=== PATIENT | male | born 1970 | race Caucasian/White ===

== ENCOUNTER 2024-10-20 08:31 | Observation (INO) ==
--- NOTE | 2024-09-21 10:37 | PAT Medication Instructions ---
Medication Instructions Date of Service September 21, 2024 Home Medications amlodipine 10 mg tablet 10 mg PO QAM cholecalciferol (vitamin D3) 125 mcg (5,000 unit) tablet (Vitamin D3) 125 mcg PO BID cyclobenzaprine 10 mg tablet 10 mg PO TID PRN DO NOT take the morning of surgery cholecalciferol (vitamin D3) 125 mcg (5,000 unit) tablet (Vitamin D3) 125 mcg PO BID Take morning of surgery With a small sip of water, OTHERWISE NOTHING TO EAT OR DRINK AFTER MIDNIGHT: amlodipine 10 mg tablet 10 mg PO QAM cyclobenzaprine 10 mg tablet 10 mg PO TID PRN(if needed) Take evening before surgery cholecalciferol (vitamin D3) 125 mcg (5,000 unit) tablet (Vitamin D3) 125 mcg PO BID cyclobenzaprine 10 mg tablet 10 mg PO TID PRN(if needed) Other Notes If you have any questions please call us at [phone] or [phone] or [phone] or [phone]
--- NOTE | 2024-09-28 11:36 | Anesthesiology Consultation ---
Date of Service September 28, 2024 Assessment & Plan (1) Encounter for pre-operative examination: Chart Review Chart Review: Acceptable Risk for Surgery (pending surgeon ordered PCP clearance ) and Patient seen in Pre Admission Testing - Awaiting PCP clearance 10/01/24 (Dr Honeycutt)- please fax preop testing for PCP review Per PAT appt on 09/28/24, no recent illness/disease exposures, illness related symptoms, or recent illness/disease positive tests. Will leave to surgeon's discretion if preop Covid testing needed Teaching & Discussion Pre-Anesthesia Teaching/Discussion Notes: Instructed NPO after midnight before surgery,except medications with 15 cc of water. Medication instructions provided according to the PAT guidelines. History Surgery Operation Date: 10/20/24 11:05 Proposed Procedures p C6-C7 Anterior Cervical Discectomy and Fusion, Spinal Cord Monitoring - Arash Hauser DO Height/Weight Height: 6 ft Weight: 132.9 kg Allergies Allergy/AdvReac Type Severity Reaction Status Date / Time No Known Allergies Allergy Verified 09/20/24 12:45 Medications Home Medications Medication Instructions Recorded Confirmed Last Taken amlodipine 10 mg tablet 10 mg PO QAM 09/20/24 09/20/24 Unknown cholecalciferol (vitamin D3) 125 125 mcg PO BID 09/20/24 09/20/24 Unknown mcg (5,000 unit) tablet (Vitamin D3) cyclobenzaprine 10 mg tablet 10 mg PO TID PRN Pain 09/20/24 09/20/24 Unknown Past Medical History Medical History BPH (benign prostatic hyperplasia) Cervical spinal stenosis Hx of gout no recent flares Hypertension Exercise / Class Metabolic Activity II 4-5 Yardwork/Stairs/Walk up hill (one flight of stairs - no chest pain or SOB- exercises at [employer] 6 days week) Past Family History Family History Father Hypertension Mother Hypertension Other No family history of adverse response to anesthesia Past Surgical History Surgical History H/O tooth extraction Hx of tonsillectomy Past Anesthesia History No Hx of Anesthesia Complications ((dental extractions and tonsillectomy during childhood)) and No Family Hx of Anesthesia Complications History of PONV No Hx of Motion Sickness and History of PONV (during childhood - no surgeries in adulthood ) Social History Smoking Status: Never smoker Do You Dip or Chew Tobacco: No Hx Alcohol Use: No substance use type: does not use Review of Systems - Had cough in Jul 2024- has since resolved - Occ reflux - feels due to increased NSAID use - no meds needed - Hx of seizure - during age 3- one time event- no seizure medications- possible febrile seizure - no issues since - Hx of snoring - no witnessed apnea- no hx of sleep study Patient denies chest pain, shortness of breath, dyspnea on exertion, wheezing, palpitations. No hx of stroke, [place]. No hx of blood clots or blood transfusions Physical Exam Vital Signs VITALS BP 151/92 P 64 TEMP 98.2 SP02 96% RESP 16 Constitutional no acute distress ENMT Mouth: no TMJ clicking Thyromental Distance: > or= 3.5 Finger Breadths (4.0) Mallampati Class: II Missing molar Neck + limited neck extension Respiratory normal respiratory effort; no respiratory distress Auscultation: lungs clear to auscultation bilaterally; no wheezes Cardiovascular Rate/Rhythm: regular rate and regular rhythm Heart Sounds: no murmur Vessels: no carotid bruit Musculoskeletal Spine: no pain with cervical ROM Extremities: extremities normal to inspection Psychiatric Orientation: alert Lab Results Anesthesia Preop Results Results Anesthesia Widget: WBC 6.54 K/ul (4.8-10.8) 09/28/24 Hgb 15.0 g/dl (14.0-18.0) 09/28/24 Hct 44.5 % (42.0-52.0) 09/28/24 Plt 212 K/uL (130-400) 09/28/24 Na 141 mmol/L (136-145) 09/28/24 K 4.2 mmol/L (3.5-5.1) 09/28/24 Cl 105 mmol/L (98-107) 09/28/24 CO2 29 mmol/L (21-32) 09/28/24 BUN 16 mg/dl (6-23) 09/28/24 Creat 1.16 mg/dl (0.6-1.4) 09/28/24 Glucose Level 79 mg/dl (70-99(Fasting)) 09/28/24 PT 10.0 Seconds (9.0-12.0) 09/28/24 PTT 25 Seconds (21-31) 09/28/24 INR 0.9 (0.9-1.1) 09/28/24 Urine Color Yellow 09/28/24 Urine Appearance Clear (Clear) 09/28/24 Urine pH 6.5 (4.5-7.5) 09/28/24 Urine Specific [place] 1.007 (1.000-1.030) 09/28/24 Urine Protein Negative (Negative) 09/28/24 Urine Glucose (UA) Negative (Negative) 09/28/24 Urine Ketones Negative (Negative) 09/28/24 Urine Blood Negative (Negative) 09/28/24 Urine Nitrite Negative (Negative) 09/28/24 Urine Bilirubin Negative (Negative) 09/28/24 Urine Urobilinogen Negative (Negative) 09/28/24 Urine Leukocyte Esterase Negative (Negative) 09/28/24 Blood Type A Negative 09/28/24 Antibody Screen NEGATIVE 09/28/24 Testing Electrocardiogram Date: 09/28/24 Findings: + SB @ (56bpm) Otherwise normal EKG per cardio Chest X-Ray Date: 09/28/24 Findings: + NAD FINDINGS: Mild cardiomegaly. Pulmonary vasculature appear within normal limits. No infiltrate, pleural effusion or pneumothorax. No acute osseous abnormality evident.
[2024-10-20] MEDS ORDERED: fentaNYL citrate PF 100 MCG/2 ML VIAL ONE (08:48)
[2024-10-20] MEDS ORDERED: ROCURONIUM BROMIDE 10 MG/ML 5 ML VIAL IV ONE ×2 (08:49→10:41)
[2024-10-20] MEDS ORDERED: PROPOFOL IV EMULSION 10 MG/ML 20 ML VIAL IV ONE ×2 (08:49)
[2024-10-20] MEDS ORDERED: GLYCOPYRROLATE 0.2 MG/ML VIAL ONE (08:49)
[2024-10-20] MEDS ORDERED: ONDANSETRON INJ 2 MG/ML 2 ML VIAL ONE (08:49)
[2024-10-20] MEDS ORDERED: DEXAMETHASONE SOD INJ 4 MG/ML VIAL ONE (08:49)
[2024-10-20] MEDS ORDERED: LIDOCAINE 2% 2 ML VIAL/AMP(20MG/ML) INFIL ONE (08:49)
[2024-10-20] MEDS ORDERED: MIDAZOLAM HCL 1 MG/ML 2ML VIAL ONE (08:49)
[2024-10-20] MEDS ORDERED: ePHEDrine sulfate 50 MG/ML AMP IV PRN (09:08)
[2024-10-20] MEDS ORDERED: HYDROmorphone INJ 2 MG/ML SYR/VIAL IV PRN (09:08)
[2024-10-20] MEDS ORDERED: DROPERIDOL 5 MG/2 ML VIAL IV PRN (09:08)
[2024-10-20] MEDS ORDERED: ATROPINE SULFATE 0.1 MG/ML 10ML SYR IV PRN (09:08)
[2024-10-20] MEDS ORDERED: PROMETHAZINE HCL 6.25 MG in SODIUM CHLORIDE 0.9% 50 ML IV PRN (09:08)
[2024-10-20] MEDS: SODIUM CHLORIDE 0.9% 1,000 ML IV SCH (09:20)
[2024-10-20] MEDS: ACETAMINOPHEN 500 MG TAB PO SCH (09:21)
[2024-10-20] MEDS: CeleBREX 200 MG CAP PO SCH (09:21)
[2024-10-20] MEDS: GABAPENTIN 900 MG DOSE PO SCH (09:21)
--- NOTE | 2024-10-20 09:47 | History & Physical Bridge Note ---
Date of Service October 20, 2024 History & Physical Bridge Note I have examined the patient, reviewed the History & Physical and in the interval since the performance of the History & Physical I have noted the following changes of clinical significance: no changes noted
--- NOTE | 2024-10-20 09:47 | Orthopedic Progress Note ---
Date of Service October 20, 2024 Results & Data Vital Signs (Past 12 Hours) Vital Signs Temp Pulse Resp BP Pulse Ox O2 Del Method 10/20/24 09:00 36.8 C 66 18 150/86 H 98 Room Air
--- NOTE | 2024-10-20 09:50 | History & Physical Report ---
Date of Service October 20, 2024 Assessment & Plan (1) Cervical spinal stenosis: Plan Anterior cervical discectomy and fusion see C6-C7 History of Present Illness Chief Complaint: Neck and arm pain Primary Care Provider: Trevor Honeycutt This is a 53-year-old male who presents for chronic persistent neck and arm sym ptoms after failing course of nonoperative care is here for surgical invention. Allergies Allergy/AdvReac Type Severity Reaction Status Date / Time No Known Allergies Allergy Verified 10/20/24 08:57 Home Medications Medication Instructions Recorded Confirmed Type amlodipine 10 mg tablet 10 mg PO QPM 09/20/24 10/20/24 History cholecalciferol (vitamin D3) 125 125 mcg PO BID 09/20/24 10/20/24 History mcg (5,000 unit) tablet (Vitamin D3) cyclobenzaprine 10 mg tablet 10 mg PO TID PRN Pain 09/20/24 10/20/24 History chlorthalidone 25 mg tablet 25 mg PO QAM 10/13/24 10/20/24 History irbesartan 75 mg tablet 75 mg PO QAM 10/13/24 10/20/24 History Past Med/Surg History Problem List Encounter for pre-operative examination Hypertension Elevated PSA Medical History BPH (benign prostatic hyperplasia) Cervical spinal stenosis Hx of gout no recent flares Hypertension Surgical History H/O tooth extraction Hx of tonsillectomy Family History Father Hypertension Mother Hypertension Other No family history of adverse response to anesthesia Social History Smoking Status: Never smoker Second Hand Exposure: No; Do You Dip or Chew Tobacco: No; Hx Alcohol Use: No Preferred Language: [place]gas[place] [employer] Required: No Beliefs That Will Affect Care: None marital status: Single Current Living Situation: Significant Other current occupational status: employed Feels Safe at Home: Yes Safety Concerns: Feels Safe At This Time Assistive Devices: Glasses Physical Exam Physical Exam: Patient is alert and oriented Heart regular rhythm Lungs clear Results & Data Results & Data Vital Signs (Past 12 Hours) Vital Signs Temp Pulse Resp BP Pulse Ox O2 Del Method 10/20/24 09:00 36.8 C 66 18 150/86 H 98 Room Air
[2024-10-20] MEDS: ceFAZolin 3000MG 3,000 MG/72.5 ML BAG IV SCH (10:12)
[2024-10-20] MEDS ORDERED: diphenhydrAMINE 50 MG/ML VIAL ONE ×2 (10:31→10:32)
[2024-10-20] MEDS ORDERED: ePHEDrine sulfate 50 MG/ML AMP ONE (10:55)
[2024-10-20] MEDS ORDERED: SUGAMMADEX SODIUM 200 MG/2 ML VIAL IV ONE (11:04)
[2024-10-20] MEDS: ceFAZolin 330 MG/ML 1 GM VIAL ONE (11:18)
[2024-10-20] MEDS: FLOSEAL HEMOSTATIC MATRIX 10ML TOP ONE (11:19)
--- NOTE | 2024-10-20 11:26 | Operative Report ---
Post Operative Report Pre & Post Diagnosis Operation Date: 10/20/24 10:15 Pre-Op Diagnosis: Cervical Spondylosis with Radiculopathy Post-Op Diagnosis: Cervical Spondylosis with Radiculopathy I identified the patient and participated in the time-out.: Yes Procedure Operation Date: 10/20/24 10:15 Actual Procedures #1 anterior cervical discectomy with bilateral foraminotomies C6-C7. #2 anterior cervical arthrodesis C6-C7. #3 placement of 9 mm Z cage filled with os design bone graft C6 C 7. #4 placement of Z plate and screws across C6-C7. Surgeon Arash Hauser, Pattern Painter Diana Martinez Estimated Blood Loss 10 Findings See Below The patient is 6 feet tall weighing over 130 kg with a BMI in excess of 39. The patient's body habitus did create significant technical difficulty with positioning exposure and the procedure itself. This at least 50% increased operative time. Specimens None Indications This is a 53-year-old male presents publish diagnosis of failed course of nonoperative care is here for surgical invention. Description of Procedure Patient was met with identified informed consent obtained. Patient was then taken to the operative suite underwent intubation placed in the supine position on the Ananda table with a head Chairez lateral. All bony promises well- padded eyes inspected to ensure no external pressure placed upon them. This point the anterior cervical spine was prepped and draped no sterile fashion. The assistance of fluoroscopy identified the C6-C7 disc space. A transverse incision was placed along the right anterior aspect of the cervical spine and minus region. Blunt dissection with assistance of bipolar cautery was performed down to and exposing the anterior cervical spine at C6-C7. A self-retaining retractors placed. Then performed a complete discectomy of C6-C7 up to the uncovertebral joints bilaterally. [place] distraction pins were utilized to assist in visualization. Removed all posterior annular fibers longitudinal ligament bilateral foraminotomies performed. Endplates burred to subcortical bleeding bone. A 9 mm Z cage filled with os design bone graft tapped in position. Distracting apparatus was removed and a Z plate and screws applied with the assistance of fluoroscopy. The incision was then copiously irrigated explored to ensure no damage to surrounding structures remaining bleeding. 10 round MARY drain inserted. The incision was then closed with 2 Vicryl in the fascia and a 4 Monocryl for final skin closure. Steri-Strips and sterile dressing placed. Patient waken taken to PACU stable condition. Please note spinal cord monitoring was utilized at the procedure no changes noted. Diana Martinez was present at the entire surgery involved the patient positioning complex portion of the surgery and final skin closure. Im ordering 10 grams of Triple Drybranch Collagen Powder ([employer] [id number]) to treat an incision wound that was caused by a spine procedure. The incision is approximately 2 cm(W) x 4 cm(L) into the joint (D) in size and is a full thickness wound. Triple Drybranch collagen comes in 1 gram packets so 10 packets were ordered. Given the size of the wound, with light to moderate exudate I chose to order a 10 day supply. The patient will be provided instructions for proper application of the collagen wound kit. The patient will be asked to apply the collagen powder daily and then cover it with sterile dressings dispensed. Collagen was selected as I expect the collagen to attract monocytes and fibroblasts, act as a sacrificial substrate for MMPs, and ultimately proved a matrix for tissue and vessel growth. The collagen will act as a primary dressing in this scenario. It is medically necessary for proper healing of these wounds to improve bioavailability and contact with each wound surface, this is also to help prevent infection of wounds and promote healing ultimately leading to a better healing outcome and limit the risk of infection. I attest to the content of the Intraoperative Record and any orders documented therein. Any exceptions are noted below.
--- NOTE | 2024-10-20 13:03 | Fluoroscopy Report ---
FL cervical 2-3V CLINICAL HISTORY: ACDF C6-C7 TECHNIQUE: 2 views were obtained with the C-arm in the OR with the above procedure. Total fluoroscopy time was 16.7 seconds. Radiation dose was 7.20 mGy. Comparison: Comparison is made to 06/23/2020 FINDINGS/IMPRESSION: Intraoperative images were obtained of ACDF of C6-C7. Please correlate with intraoperative fluoroscopy and operative report. ACT 112: Negative or not required by law. Electronically signed by: Jean-Pierre Suaerz M.D. 10/20/2024 1:02 PM
--- NOTE | 2024-10-20 14:17 | Anesthesiology Progress Note ---
Date of Service October 20, 2024 Anesthesia Post Procedure Vital Signs Vital Signs: Temp Pulse Resp BP Pulse Ox O2 Del Method O2 Flow Rate 10/20/24 13:45 72 18 155/70 H 96 Nasal Cannula 2 10/20/24 13:30 74 18 142/63 H 94 Room Air 10/20/24 13:15 69 20 150/69 H 92 Room Air 10/20/24 13:00 70 16 154/76 H 93 Room Air 10/20/24 12:45 36.5 C 70 18 152/89 H 93 Room Air 10/20/24 12:35 74 16 157/85 H 99 Room Air 10/20/24 12:25 74 15 159/87 H 100 Nasal Cannula 2 10/20/24 12:15 72 15 153/80 H 98 Nasal Cannula 2 10/20/24 12:05 73 18 151/87 H 94 Oxymask 2 10/20/24 11:55 80 12 166/92 H 99 Oxymask 2 10/20/24 11:45 74 14 132/74 96 Oxymask 4 10/20/24 11:35 36.1 C L 84 15 138/80 100 Oxymask 6 10/20/24 09:00 36.8 C 66 18 150/86 H 98 Room Air Pain Intensity Right Arm: Pain Intensity: 4 Anterior Neck: Pain Intensity: 2 Transfer of Care Handoff Completed per policy Notes Mental Status: alert / awake / arousable and participated in evaluation Nausea / Vomiting: adequately controlled Pain: adequately controlled Airway Patency, RR, SpO2: stable & adequate BP & HR: stable & adequate Hydration State: stable & adequate Anesthetic Complications: no major complications apparent and Pt Satisfied with anesthetic care
[2024-10-20] MEDS ORDERED: LORazepam 2 MG/1 ML VIAL IV PRN (15:36)
[2024-10-20] MEDS ORDERED: DO NOT ADMINISTER PNEUMOCOCCAL VACCINE PRN (15:36)
[2024-10-20] MEDS ORDERED: hydrOXYzine HCl 25 MG TAB PO PRN (15:36)
[2024-10-20] MEDS ORDERED: HYDROmorphone INJ 0.5 MG/0.5 ML SYR IV PRN (15:36)
[2024-10-20] MEDS ORDERED: diphenhydrAMINE Capsule 25 MG CAP PO PRN (15:36)
[2024-10-20] MEDS ORDERED: RACEPINEPHRINE 2.25% NEBU SOLN 0.5 ML VIAL INH PRN (15:36)
[2024-10-20] MEDS ORDERED: ALUMINUM/MAGNESIUM SUSP 30 ML UDC PO PRN (15:36)
[2024-10-20] MEDS ORDERED: METOCLOPRAMIDE HCL INJ 5 MG/ML 2 ML VIAL IV PRN (15:36)
[2024-10-20] MEDS ORDERED: SOD PHOSPHATE/SOD BIPHOSPHATE ENEMA 132 ML BTL PR PRN (15:36)
[2024-10-20] MEDS ORDERED: dexAMETHasone 8 MG in SYRINGE 0 ML IV PRN (15:36)
[2024-10-20] MEDS ORDERED: MAGNESIUM HYDROXIDE SUSP 30 ML UDC PO PRN (15:36)
[2024-10-20] MEDS ORDERED: ONDANSETRON INJ 2 MG/ML 2 ML VIAL IV PRN (15:36)
[2024-10-20] MEDS ORDERED: bisacodyL 10 MG SUPP PR PRN (15:36)
[2024-10-20] MEDS ORDERED: ACETAMINOPHEN 500 MG TAB PO PRN (15:36)
[2024-10-20] MEDS ORDERED: oxyCODONE HCL IR 5 MG TAB (IMMEDIATE RELEASE) PO PRN (15:36)
[2024-10-20] MEDS ORDERED: ACETAMINOPHEN 1,000 MG/100 ML VIAL IV PRN (15:36)
[2024-10-20] MEDS ORDERED: HYDROmorphone INJ 1 MG/ML SYRINGE IV PRN (15:36)
[2024-10-20] MEDS ORDERED: PROMETHAZINE 12.5 MG/50.5 ML BAG IV PRN (15:36)
[2024-10-20] MEDS ORDERED: CYCLOBENZAPRINE HCL 10 MG TAB PO PRN (15:36)
[2024-10-20] MEDS ORDERED: LORazepam 0.5 MG TAB PO PRN (15:36)
[2024-10-20] MEDS ORDERED: traMADol HCL 50 MG TABLET PO PRN (15:36)
[2024-10-20] MEDS ORDERED: NALOXONE HCL 0.4 MG/1 ML VIAL/CARP IV PRN (15:36)
[2024-10-20] MEDS ORDERED: DO NOT ADMINISTER FLU VACCINE PRN (15:36)
[2024-10-20] MEDS ORDERED: ONDANSETRON 4 MG OD TAB PO PRN (15:36)
[2024-10-20] MEDS ORDERED: FAMOTIDINE 20 MG TAB PO PRN (15:36)
[2024-10-20] MEDS: LR 15ML/HR IV SCH (15:38)
[2024-10-20] MEDS: LR 60ML/HR IV SCH (15:38)
[2024-10-20] MEDS: ceFAZolin 2000MG 2,000 MG/15 ML SYR IV SCH (17:06)
[2024-10-20] MEDS: amLODIPine BESYLATE 5 MG TAB PO SCH (21:43)
[2024-10-20] MEDS: DOCUSATE SODIUM/SENNA 50/8.6MG TAB PO SCH (21:43)
[2024-10-20] MEDS: CHOLECALCIFEROL 125 MCG (5,000 UNITS) TAB PO SCH (21:43)
[2024-10-21 05:25] VITALS: BP 153/79; TEMP 97.7
[2024-10-21] MEDS: POLYETHYLENE (MIRALAX) 17 GM PACK PO SCH (06:34)
[2024-10-21 07:08] VITALS: PULSE 64; RESP 16; O2SAT 94
[2024-10-21] MEDS: dexAMETHasone 6 MG in SYRINGE 0 ML IV SCH (09:08)
[2024-10-21] MEDS: CHLORTHALIDONE 25 MG TAB PO SCH (09:48)
--- NOTE | 2024-10-21 10:24 | Discharge Summary ---
Date of Service October 21, 2024 Admission HPI Per Admitting Provider This is a 53-year-old male who presents for chronic persistent neck and arm symptoms after failing course of nonoperative care is here for surgical invention. Principal Diagnosis Cervical spondylosis with radiculopathy Discharge Data Allergies Allergy/AdvReac Type Severity Reaction Status Date / Time No Known Allergies Allergy Verified 10/20/24 08:57 Procedures Performed Operation Date: 10/20/24 10:15 Actual Procedures p C6-C7 Anterior Cervical Discectomy and Fusion, Spinal Cord Monitoring(Not Applicable) - Arash Hauser DO Ordered Studies 10/20/24 10:15 [place] cervical 2-3V Routine Hospital Course (1) Cervical spinal stenosis: Patient underwent anterior cervical discectomy and fusion tolerated this well was taken to orthopedic for postoperative. Postoperatively he was swallowing well. No hoarseness. Arm symptoms markedly improved. Subsequently discharged home. Discharge orders instructions from the chart for further review. Total Time Total Time Spent Total Time Spent (In Minutes): 40 minutes Discharge Plan Discharge Items Patient Disposition: Home - Self-Care Reason For Visit: Cervical Spondylosis with Radiculopathy Discharge Diagnosis: cervical radiculopathy Activity: As commented below Non-emergency contact: Primary Care Provider Call non-emergency contact if: you have any medication questions Follow-up/Referrals: Trevor Honeycutt [Primary Care Provider] - Diet: Regular Addtl Attending Provider Instructions: ACTIVITY RECOMMENDATIONS: SELF CARE INSTRUCTIONS AFTER CERVICAL FUSIONS 1. No smoking. Smoking drastically decreases the chance of a solid fusion. 2. No bending, lifting more than 5 pounds, or twisting (roll like a log when turning in bed). 3. You may shower 3 days after surgery. Thoroughly dry wound. Do not soak in the tub. 4. Cervical collar: Must be worn at all times including sleeping. You may remove the brace only to bath, eat and if you are sitting in a recliner. 5. Please walk as much as you can for exercise. Gradually increase the distance that you walk as your endurance increases. 6. You may return to previous diet. SPECIAL CARE INSTRUCTIONS: VERY IMPORTANT TO READ AND REVIEW A. Do not take any anti-inflammatory medications (i.e. Indocin, Advil, Aspirin, Naprosyn, Aleve, Motrin, etc.) as these may inhibit the chance of a solid fusion. Tylenol is okay to take. B. Your surgical incision has been closed with a cosmetic suture under the skin that will dissolve in about 6 weeks. In 14 days, you can use a pair of clean scissors and cut the suture that is left outside of the skin at the ends of your incision. C. Complications are uncommon, but please contact us if you have any signs or symptoms of: 1. wound infection (fever higher than 102.5 degrees F, redness, separation of wound, drainage, or increasing pain from the incision) 2. blood clots in legs (pain, swelling, redness and warmth in legs) 3. urinary tract infection (fever higher than 102.5 degrees, burning upon urination or increased frequency of urination) 4. nerve problems (inability to walk on your toes or heels, numbness, loss of bowel or bladder control) 5. any other symptoms that concern you. D. Please call the office at if you have any concerns or questions about your operation or recovery. MANAGING PAIN AFTER SPINAL SURGERY 1. Narcotic medication is intended for short-term use and will be provided for surgical pain. Surgical pain usually lasts for a period of 4-6 weeks. Narcotic medication includes Percocet, Vicodin, Darvocet, Tylenol #3 or Lortab. 2. Longer-term pain is more appropriately treated with non-narcotic medication such as Tylenol ES. 3. Muscle spasm is not appropriately treated with narcotics. Muscle relaxers such as Soma, Flexeril or Skelaxin can be used along with Tylenol ES. 4. Remember that we all live with some "aches and pains". This is not unusual or uncommon after an injury or as we get older. 5. We will provide appropriate medication within the normal guidelines of their prescribed use. We will also be very cautious and aware of potential abuse and extended duration of patients' medication needs. 6. Please allow 2-3 days to process refills. Prescriptions will not be mailed but must be picked up at the office. FOLLOW UP VISIT: Keep your scheduled follow-up appointment. Any questions, please call the office at . Pending Studies at Discharge: No Stand-Alone Forms: [facility] [employer], Smoking Cessation Medications and DC Order Prescriptions: New tramadol 50 mg tablet 50 mg PO Q6H PRN (Reason: pain, moderate) Qty: 20 0RF oxycodone 5 mg tablet 5 mg PO Q6H PRN (Reason: pain) Qty: 20 0RF Continued amlodipine 10 mg Tablet 10 mg PO QPM cholecalciferol (vitamin D3) [Vitamin D3] 125 mcg (5,000 unit) Tablet 125 mcg PO BID cyclobenzaprine 10 mg Tablet 10 mg PO TID PRN (Reason: Pain) chlorthalidone 25 mg Tablet 25 mg PO QAM irbesartan 75 mg Tablet 75 mg PO QAM Discharge Orders: Discharge Order (Routine); Ordered 10/21/24 Ordered By: Arash Hauser Admission Data Admit Date/Time: 10/20/24 11:28 Attending Provider: Arash Hauser Admit Provider: Arash Hauser Primary Care Provider: Trevor Honeycutt
--- OUTSIDE RECORDS SUMMARY | 2024-10-21 17:05 | External Medical Summary | Continuity of Care Document ---
Author Name Unknown Organization [facility] [id number] [address] [place] [phone] Care Team Providers Care Poker Machine Attendant Name Role Phone Trevor Honeycutt Primary Care Physician [phone] [id number] Date[facility]s): 10/[facility] - 10/01/24 [facility] [address] [place] [address] [phone] Encounter Diagnosis Body mass index [BMI] 39.0-39.9, adult(Discharge Diagnosis) - 10/01/24 Preop testing(Discharge Diagnosis) - 10/01/24 HTN (hypertension)(Discharge Diagnosis) - 10/01/24 Morbid obesity(Discharge Diagnosis) - 10/01/24 PSA elevation(Discharge Diagnosis) - 10/01/24 Discharge Disposition: Home or Self Care Attending Physician: MD Honeycutt Dongsheng Allergies, Adverse Reactions, Alerts No Known Allergies Assessment and Plan Extracted from: Title:Office Visit Note Author:MD Honeycutt Dongsh eng Date:10/01/24 1.Preop testing Patient's METS score is at least 4. This is a class I (0 point) on reviewed cardiac risk index so there is about0.4-0.5% risk of cardiac complications (cardiac , nonfatal cardiac arrest, VA, pulmonary edema, ventricular fibrillation, primary cardiac arrest, and complete heart block).For an intermediate procedure, patient is at acceptable risk. reviewed CXR, EKG, labs (cbc,bmp) reports from [facility]. BP will need to be lower before clearance. 2.HTN (hypertension) STATUS: Chronic, not at goal DATA: Reviewed labs: cmp,flp GOAL: bp<140/90 PLAN: continue amlodipine. restartchlorthalidone. DASH, exercise and wt loss - sheet given. Avoid NSAIDs.Use tylenolTID prnfor pain control.Home BP BID and let me know the readings on Friday. Will add irbesartan if still elevated. 3.Morbid obesity STATUS: Chronic stable: Chronic uncontrolled: x Acute uncomplicated: Acute illness with systemic symptoms: Undiagnosed new problems with uncertain prognosis: Chronic illnesses with exacerbation, progression, or side effects of treatment: 1 acute complicated injury: DATA: Review of prior external note(s) from each unique source: Review of the result(s) of each unique test: Ordering of each unique test: Assessment requiring independent historian(s): GOAL: 5% PLAN: diet and exercise - sheet given. declined GLP1 again. Ordered nutrition referral. 4.PSA elevation STATUS: Chronic stable: Chronic uncontrolled: x Acute uncomplicated: Acute illness with systemic symptoms: Undiagnosed new problems with uncertain prognosis: Chronic illnesses with exacerbation, progression, or side effects of treatment: 1 acute complicated injury: DATA: Review of prior external note(s) from each unique source: Review of the result(s) of each unique test: PSA Ordering of each unique test: Assessment requiring independent historian(s): GOAL: Resolution PLAN: had Bx. f/u urolo gy call prn.f/u 1 wk if BP still elevated. Time spent: Pre-visit planning/chart review: 5 minutes Wobp-eu-wfjp visit: 25 minutes Post-visit documentation: minutes Care coordination: minutes Time spent on disease management/counseling in addition to CPE/AWV/WCC: minutes Total visit time: 30 minutes Immunizations Given and Recorded Vaccine Date Status Refusal Reason influenza virus vaccine, inactivated 10/11/20 Give n influenza virus vaccine, inactivated 08/25/19 Give n tetanus/diphtheria/pertuss, acel (Tdap) 1 05/30/15 Recorded 1Result Comment: 2019-04-01: Historical information-source unspecified Medications amLODIPine 10 mg oral tablet Start: 10/01/24 4:10:00 PM EST, 1 tab, PO, Daily, Disp# 90 tab, Refills: 1, Pharmacy: [id number] Start Date: 10/01/24 Stop Date: 03/30/25 Status: Ordered chlorthalidone 25 mg oral tablet Start: 10/01/24 4:10:00 PM EST, 1 tab, PO, Daily, Disp# 90 tab, Refills: 1, Pharmacy: [id number] Start Date: 10/01/24 Stop Date: 03/30/25 Status: Ordered cyclobenzaprine 10 mg oral tablet Start: 10/16/23 8:31:00 AM EST, 1 tab, PO, tid, Disp# 60 tab, Refills: 1, TAKE 1 TABLET BY MOUTH THREE TIMES DAILY NEEDED FOR MUSCLE SPASM, Pharmacy: [id number] Start Date: 10/16/23 Status: Ordered Heplisav-B 20 mcg/0.5 mL intramuscular solution Start: 08/13/24 5:10:00 PM EDT, See Instructions, Disp# 0.5 mL, Refills: 1, 20 mcg IM #2 at least one month after #1 but per forest scientist instruction, Pharmacy: [id number] Start Date: 08/13/24 Status: Ordered Mental Status 10/01/24 Barriers to Learning one year None evide nt Problem List Condition Confirmation Course Effective Dates Status Health St atus Informant HTN (hypertension) Confirmed Active Morbid obesity Confirmed Active PSA elevation Confirmed Active Skin lesion Confirmed Active Diagnosis Diagnosis Type Effective Dates Health Status Cl inical Service Informant Body mass index [BMI] 39.0-39.9, adult Discharge Diagnosis 10/01/24 Non-Specified Morbid obesity Discharge Diagnosis 10/01/24 Non-Specified PSA elevation Discharge Diagnosis 10/01/24 Non-Specified Preop testing Discharge Diagnosis 10/01/24 Non-Specified HTN (hypertension) Discharge Diagnosis 10/01/24 Non-Specified Procedures Procedure Date Related Diagnosis Body Site Status X-ray of right knee 1 02/21/[address] of cervical spine 2 06/23/[address] of head without contrast 3 06/23/[address] of thoracic spine without contrast 4 06/23/20 Completed X-ray of thoracic and lumbar spine 5 06/23/20 Completed Punch biopsy of skin lesion 07/20/19 Completed Chest x-ray 6 03/12/19 Completed Tonsillectomy Completed 1Impression: 1. No fracture or dislocation within the right knee. 2. Developing degenerative changes within the medical compartment. 21. Acute minimally angulated and mildly displaced fracture of the C7 spinous process 2. No definite additional cervical spine fracture identified. Minimal superior endplate compressionof less than 20% involving the C7-T3 vertebral bodies is favored to be on a chronic/degenerative basis 3No acute intracranial abnormality or calvarial fracture 41. Confirmation of the acute fracture involving the anterior inferior endplates of T10 with less than 20% vertebral body height loss and no retropulsion. Mild reactive paravertebral edema. 2. Acute mildly displaced fracture of the C7 spinous process 3. Equivocal subtle nondisplaced fracture involving the anterior superior endplate osteophyte at T11 51. Possible nondisplaced fractures at the anterior-inferior endplate of T9 and an anterior osteophyte at the superior endplate of T10 2. No fracture or subluxation within the lumbar spine 6Minimal bibasilar opacities suggest probable atelectasis. 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 Sex Male Sex Representation Male (finding) [facility]CM Outpt Note * MD Yinka, Trevor: PERFORM Event Display: [facility] Outpt Note Authored Date: [id number] Chief Complaint preop for Oct 20 surgery History of Present Illness Pre-op: Surgery: cervical fusion Surgeon:UHOLA Date:10/20/2024 Anesthesia: general Fax: Last surgery: tonsillectomy as a child Complications with anesthesia: none High-risk surgery (intraperitoneal, intrathoracic, or vascular): no H/o heart disease/VA/CHF: no h/o CVA/TIA: no h/o DM on insulin: no h/o kidney disease with Cr >2: no h/o RA: no Activity: can climb a hill or at least 2 flights of stairs without chest pain or unusual SOB or difficulty Snore: intermittent URI illness in the past month: no Alcohol use: rare Tobacco use: no Drug use: no Neck pain:has beenonmotrinBIDdailyand it caused heartburnso stop med. HTN:on med but ran out of chlorthalidone some days ago.home bp has been good but last check was a month ago. Review of Systems No fever/chills. No headache. No respiratory symptoms. No chest pain/shortness of breath. No nausea/vomiting. No abdominal pain. No change with bowels. No urinary symptoms. No bleeding. No other joint pain. No anxiety/depression. Other systems reviewed and are neg. Physical Exam Vitals & Measurements T:36.8C HR:61(Monitored) RR:167 BP:164/108 SpO2:97% HT:185cm WT:134kg WT:134.000kg(Dosing) BMI:39.15 PHQ2 Data(Data Documented on:10/01/2024 15:49) Emotional health assessment NEGATIVE General: No acute distress. Nontoxic. Head:Normocephalic, Atraumatic. Eyes:Pupils are equal, round Normal conjunctiva. Throat:No pharyngeal erythema, no abnormal masses or lesions. Neck: No jugular venous distention, No lymphadenopathy Respiratory:Lungs are clear to auscultation, Respirations non-labored, Breath sounds equal YOKO. Cardiovascular:Normal rate, Regular rhythm, No murmur, Rubs, gallops. Gastrointestinal:Soft, Non-tender, Non-distended, Normal bowel sounds. Musculoskeletal:no pitting edema Neurologic:Alert, Oriented, No focal deficits. Psychiatric:Cooperative, Appropriate mood & affect. Assessment/Plan 1.Preop testing Patient's METS score is at least 4. This is a class I (0 point) on reviewed cardiac risk index so there is about0.4-0.5% risk of cardiac complications (cardiac , nonfatal cardiac arrest, VA, pulmonary edema, ventricular fibrillation, primary cardiac arrest, and complete heart block).For an intermediate procedure, patient is at acceptable risk. reviewed CXR, EKG, labs (cbc,bmp) reports from [facility]. BP will need to be lower before clearance. 2.HTN (hypertension) STATUS: Chronic, not at goal DATA: Reviewed labs: cmp,flp GOAL: bp<140/90 PLAN: continue amlodipine. restartchlorthalidone. DASH, exercise and wt loss - sheet given.Avoid NSAIDs.Use tylenolTID prnfor pain control.Home BP BID and let me know the readings onMonday. Will add irbesartan if still elevated. 3.Morbid obesity STATUS: Chronic stable: Chronic uncontrolled: x Acute uncomplicated: Acute illness with systemic symptoms: Undiagnosed new problems with uncertain prognosis: Chronic illnesses with exacerbation, progression, or side effects of treatment: 1 acute complicated injury: DATA: Review of prior external note(s) from each unique source: Review of the result(s) of each unique test: Ordering of each unique test: Assessment requiring independent historian(s): GOAL: 5% PLAN:diet and exercise - sheet given. declined GLP1 again. Ordered nutrition referral. 4.PSA elevation STATUS: Chronic stable: Chronic uncontrolled: x Acute uncomplicated: Acute illness with systemic symptoms: Undiagnosed new problems with uncertain prognosis: Chronic illnesses with exacerbation, progression, or side effects of treatment: 1 acute complicated injury: DATA: Review of prior external note(s) from each unique source: Review of the result(s) of each unique test: PSA Ordering of each unique test: Assessment requiring independent historian(s): GOAL: Resolution PLAN: had Bx. f/u urology call prn.f/u 1 wk if BP still elevated. Time spent: Pre-visit planning/chart review: 5 minutes Zsvu-[id number]-exju visit: 25 minutes Post-visit documentation: minutes Care coordination: minutes Time spent on disease management/counseling in addition to CPE/AWV/WCC: minutes Total visit time: 30 minutes Problem List/Past Medical History Ongoing HTN (hypertension) Morbid obesity PSA elevation Skin lesion Resolved Knee pain Plantar fasciitis Procedure/Surgical History X-ray of right knee| Service Date: 1CT of cervical spine| Service Date: 06/23/2020CT of head without contrast| Service Date: 06/23/2020CT of thoracic spine without contrast| Service Date: 06/23/2020X-ray of thoracic and lumbar spine| Service Date: 06/23/2020Punch biopsy of skin lesion| Service Date: 07/20/2019Chest x-ray| Service Date: 03/12/2019Tonsillectomy Medications amLODIPine(amLODIPine 10 mg oral tablet), 1 tab, PO, Daily, 1 refills chlorthalidone(chlorthalidone 25 mg oral tablet), 1 tab, PO, Daily, 1 refills cyclobenzaprine(cyclobenzaprine 10 mg oral tablet), 10 mg= 1 tab, PO, tid, 1 refills hepatitis B adult vaccine(Heplisav-B 20 mcg/0.5 mL intramuscular solution), See Instructions, 1 refills Allergies NKA No Known Medication Allergies Social History Smoking Status Never smoked cigarettes Alcohol - Denies Alcohol Use Exercise - Occasional exercise Tobacco - Denies Tobacco Use Family History Dementia: MGM and PGM. Glaucoma: Mother and MGM. Hypertension: Mother, Father, MGM and PGF. Kidney disease: Mother. Liver cancer: PGF. Pancreatic cancer..: PGF. Thyroid disorder: Mother. Health Status Family Member(s) Immunizations Vaccine Date Status influenza virus vaccine, inactivated 10/11/2020 Given influenza virus vaccine, inactivated 08/25/2019 Given tetanus/diphtheria/pertuss, acel (Tdap) 05/30/2015 Recorded Comments : 2019-04-01: Historical information-source unspecified Recommendations Health Maintenance Pending(in the next year) OverDue Adult Influenza Vaccine due05/09/24and every 1year Due Adult COVID-19 Vaccination due10/01/24Unknown Frequency Adult Social Determinants of Health Screening due10/01/24Unknown Frequency Colorectal Cancer Screening due10/01/24Unknown Frequency Shingles Vaccine due10/01/24One-time only Satisfied(in the past 1 year) Satisfied Body Mass Index on10/01/24.Satisfied by EDDIE Ludnberg Kathryn Lipid Screening on08/13/24.Satisfied by Contributor_system, [employer] Electronic Signature on File Electronically Reviewed/Signed by: Trevor Honeycutt MD Author Signature Dt/Tm:10/01/2024 04:28 PM Department of Family Medicine DJ Patient Care team information Care Team Personnel Name: MD Honeycutt Dongsheng Position: Physician - Family Med Member Role: Primary Care Provider Address: [facility] [address] Care Team Related Persons Name: MOOK KRISHNA"
== END 2024-10-21 12:08 | disposition home or self-care (01) ==
LOC: ASU 08:31 → 3E 08:31